=== PATIENT | female | born 1995 | race Asian ===

== ENCOUNTER 2016-07-06 14:18 | Outpatient (CLI) | payer OTHER ==
[~2016-07-06] VITALS: Ht 170.2 cm; Wt 88.6 kg
[2016-07-06 14:23] VITALS: BP 124/74
[2016-07-06] MEDS ORDERED: PREN1TAB60 PO (15:06)
== END 2016-07-06 15:30 | disposition home or self-care (01) ==
LOC: LDOP 14:18
PROVIDERS: ATTEND Obstetrics & Gynecology
DX: O26.893 Other specified pregnancy related conditions, third trimester (principal); R06.02 Shortness of breath; R07.9 Chest pain, unspecified; Z3A.38 38 weeks gestation of pregnancy
CPT/HCPCS: 59025; 99201; G0463

== ENCOUNTER 2016-07-24 10:42 | Inpatient (IN) | payer OTHER ==
[~2016-07-24] VITALS: Ht 170.2 cm; Wt 87.7 kg
[~2016-07-24 10:42] MED LIST: PREN1TAB60 PO
[2016-07-27 20:18] VITALS: BP 127/88
[2016-07-27] MEDS ORDERED: OXYTOCIN 30U/ 0.9% NaCL 500ML 500 ML IV PRN (20:25)
[2016-07-27] MEDS ORDERED: LACTATED RINGERS 1,000 ML IV SCH (20:25)
[2016-07-27] MEDS ORDERED: OXYTOCIN 30U/ 0.9% NaCL 500ML 500 ML IV ONE (20:25)
[2016-07-27] MEDS ORDERED: MISOPROSTOL 25 MCG TABLET ONE ×2 (20:25→20:31)
[2016-07-27] MEDS ORDERED: D5%-LACTATED RINGERS 1,000 ML IV SCH (20:25)
[2016-07-27] MEDS ORDERED: FENTANYL PF 100 MCG/2ML IVPush PRN (20:30)
[2016-07-27] MEDS ORDERED: CALCIUM CARBONATE 500 MG TAB.CHEW PO PRN (20:30)
[2016-07-27] MEDS ORDERED: SODIUM CITRATE/CITRIC ACID 30 ML UDC PO PRN (20:30)
[2016-07-27] MEDS ORDERED: TERBUTALINE 1 MG/ML, 1ML IVPush PRN ×2 (20:30)
[2016-07-27] MEDS ORDERED: METOCLOPRAMIDE 5 MG/ML, 2ML IVPush PRN (20:30)
[2016-07-27] MEDS ORDERED: ONDANSETRON 2MG/ML, 2ML IVPush PRN (20:30)
[2016-07-27] MEDS ORDERED: ALUMINUM/MAG/SIMETHICONE 30 ML UDC PO PRN (20:30)
[2016-07-27] MEDS ORDERED: FENTANYL PF 100 MCG/2ML IV PRN (20:30)
[2016-07-27] MEDS ORDERED: MISOPROSTOL 25 MCG TABLET VG PRN (20:30)
[2016-07-27] MEDS ORDERED: NEWBORN KIT ONE (20:31)
[2016-07-27] MEDS ORDERED: MISOPROSTOL 200 MCG TABLET ONE (20:31)
[2016-07-27] MEDS ORDERED: LIDOCAINE 1%, 20ML ONE (20:31)
[2016-07-28] MEDS ORDERED: FENTANYL PF 100 MCG/2ML ONE (02:08)
[2016-07-28] MEDS ORDERED: FENTANYL/BUPIV./NS/PF 250 ML EPIDCONT ONE (03:12)
[2016-07-28] MEDS ORDERED: LIDOCAINE/PF 1.5%-EPI 1:200K, 30ML ONE ×2 (03:12→03:20)
[2016-07-28] MEDS ORDERED: LACTATED RINGERS 1,000 ML IV SCH (03:40)
[2016-07-28] MEDS ORDERED: FENTANYL/BUPIV./NS/PF 250 ML EPIDCONT SCH (03:40)
[2016-07-28] MEDS ORDERED: LACTATED RINGERS 1,000 ML IVBOLUS PRN (04:00)
[2016-07-28] MEDS ORDERED: OXYTOCIN 30U/ 0.9% NaCL 500ML 500 ML ONE ×2 (06:29→13:14)
[2016-07-28] MEDS ORDERED: ONDANSETRON 2MG/ML, 2ML ONE (13:48)
[2016-07-28] MEDS ORDERED: DOCUSATE 100 MG CAPSULE PO PRN (17:00)
[2016-07-28] MEDS ORDERED: OXYcodone IR 5MG TABLET PO PRN (17:00)
[2016-07-28] MEDS ORDERED: MISOPROSTOL 200 MCG TABLET PO PRN (17:00)
[2016-07-28] MEDS ORDERED: ONDANSETRON 2MG/ML, 2ML IV PRN (17:00)
[2016-07-28] MEDS: OXYTOCIN 30U/ 0.9% NaCL 500ML 500 ML IV SCH (17:52)
[2016-07-28] MEDS ORDERED: IBUPROFEN 600 MG TABLET ONE (19:24)
[2016-07-28] MEDS: IBUPROFEN 600 MG TABLET PO PRN (19:26)
[2016-07-28 21:35] VITALS: BP 121/65
[2016-07-28] MEDS: OXYcodone IR 5MG TABLET PO PRN (23:30)
[2016-07-29 01:30] VITALS: BP 124/78
[2016-07-29] MEDS: OXYTOCIN 30U/ 0.9% NaCL 500ML 500 ML IV SCH ×2 (02:50→12:50)
[2016-07-29] MEDS: OXYcodone IR 5MG TABLET PO PRN (06:08)
[2016-07-29] MEDS: IBUPROFEN 600 MG TABLET PO PRN ×3 (06:08→17:55)
[2016-07-29 07:37] VITALS: BP 113/69
[2016-07-29] MEDS ORDERED: PRENATAL VIT/IRON/FA 1 EACH TABLET PO SCH (09:00)
[2016-07-29] MEDS ORDERED: MEASLES,MUMPS&RUBELLA VACC/PF 0.5 ML SQ-VACC ONE ×2 (12:44→13:00)
[2016-07-29] MEDS ORDERED: OXYC-302 PO (13:24)
[2016-07-29] MEDS ORDERED: IBUP-1222 PO (13:24)
== END 2016-07-29 18:36 | disposition home or self-care (01) | DRG 775 ==
LOC: LDIP 07-27 20:18 → 2NW 07-28 20:27
PROVIDERS: ADMIT Obstetrics & Gynecology; ATTEND Obstetrics & Gynecology
PROC: 10E0XZZ Delivery of Products of Conception, External Approach (ICD-10-PCS; principal; 2016-07-28)
PROC: 0KQM0ZZ Repair Perineum Muscle, Open Approach (ICD-10-PCS; 2016-07-28)
PROC: 00HU33Z Insertion of Infusion Device into Spinal Canal, Percutaneous Approach (ICD-10-PCS; 2016-07-28)
PROC: 3E0R3CZ (ICD-10-PCS; 2016-07-28)
DX: O48.0 Post-term pregnancy (principal); O69.81X0 Labor and delivery complicated by cord around neck, without compression, not applicable or unspecified; O70.1 Second degree perineal laceration during delivery; Z3A.40 40 weeks gestation of pregnancy; Z37.0 Single live birth; Z88.2 Allergy status to sulfonamides
CPT/HCPCS: 36415; 85025; 86850; 86900; J2405; J3010; J3490; J2590; J7120

== ENCOUNTER 2017-01-10 14:45 | Emergency (ER) | payer OTHER ==
[~2017-01-10] VITALS: Ht 170.2 cm; Wt 76.6 kg
[~2017-01-10 14:45] MED LIST changes: +IBUP-1222 PO; +OXYC-302 PO
[2017-01-10] MEDS ORDERED: ONDANSETRON 2MG/ML, 2ML ONE (15:19)
[2017-01-10 15:23] LABS: HEMATOCRIT 43.3 % (34.6-47.8); HEMOGLOBIN 14.9 g/dL (11.7-16.4); WHITE BLOOD COUNT 10.1 x10^3/uL (3.4-10)
[2017-01-10] MEDS ORDERED: SODIUM CHLORIDE FLUSH 10ML SYR IVF ONE (15:30)
[2017-01-10] MEDS ORDERED: SODIUM CHLORIDE 0.9% 1,000ML IVBOLUS ONE (15:30)
[2017-01-10] MEDS ORDERED: ONDANSETRON 2MG/ML, 2ML IVPush ONE (15:30)
[2017-01-10 15:33] LABS: BLOOD UREA NITROGEN 15 mg/dL (7-18)
[2017-01-10 15:34] LABS: ASPARTATE AMINO TRANSFERASE 13 U/L (15-37)
[2017-01-10 16:09] VITALS: BP 120/80
== END 2017-01-10 17:21 | disposition home or self-care (01) ==
LOC: ED 17:00
DX: R11.2 Nausea with vomiting, unspecified (principal); Z90.49 Acquired absence of other specified parts of digestive tract
CPT/HCPCS: 36415; 74177; 80053; 81001; 83690; 84703; 85025; 87086; 96361; 96374; 99285; J2405; J7030